=== PATIENT | female | born 1985 | race Caucasian/White ===

== ENCOUNTER 2016-08-20 11:55 | Emergency (ER) | payer BC ==
[~2016-08-20] VITALS: Ht 162.6 cm; Wt 122.0 kg
[~2016-08-20 11:55] MED LIST: IRON1TAB78 PO; PREN1TAB62 PO
[2016-08-20 12:00] VITALS: Ht 162.6 cm; Wt 122.0 kg
[2016-08-20] MEDS ORDERED: ALBUTEROL 0.083% (NEB) 2.5 MG/3 ML AMP HHN STA (13:08)
--- NOTE | 2016-08-20 13:40 | RADRPT ---
PROCEDURE: XR Chest. CLINICAL INDICATION: chest pain, cough TECHNIQUE: Single frontal view of the chest was obtained COMPARISON: 01/30/2008 FINDINGS: The heart and mediastinum are within normal limits. The lungs are clear. There is no pleural effusion or pneumothorax. RPTAT: AA IMPRESSION: No acute disease. .Jose L Darling MD, MD Date Time Electronically viewed and signed by .Jose L Darling MD, on 08/20/2016 13:40 .S/
[2016-08-20] MEDS ORDERED: NAPR-260 PO (15:18)
[2016-08-20] MEDS ORDERED: ALBU8.5H3 INH (15:18)
--- NOTE | 2016-08-20 17:34 | ERD ---
ER Documentation Chief Complaint Date/Time DATE: 08/20/16 TIME: 17:30 Chief Complaint chest pain x 2 days HPI Patient is a 31-year-old female with no past medical history who presents to the ED with chest pain, chest pressure and shortness of breath with a dry cough for the last 3 days. She states that she has had shortness of breath and a dry cough and feels that she has wheezing. She states that the pain is located in her upper chest. Denies radiation of pain. Denies numbness or tingling. Denies fever, chills or night sweats. She states that she has had these symptoms in the past but has not taken any medication for her symptoms. She denies recent surgeries, recent travel. She denies leg pain or leg swelling. She states that the pain in her chest is on and off. She denies syncopal episodes. She denies headache or dizziness, neck pain or neck stiffness. She denies any early MIs in her family history. ROS All systems reviewed and are negative except as per history of present illness. Medications Home Meds Active Scripts Naproxen* (Naprosyn*) 500 Mg Tablet, 500 MG PO BID Y for PAIN AND/OR INFLAMMATION, #30 TAB Prov:IVAN ORTA PA-C 08/20/16 Albuterol Sulfate* (Proair HFA*) 8.5 Gm Hfa.aer.ad, 2 PUFF INH Q4, #1 INHALER Prov:IVAN ORTA PA-C 08/20/16 Reported Medications Iron,Carbonyl/Vit C/Vit B12/Fa (IRON 100 PLUS TABLET) 1 Each Tablet, 1 EACH PO, TAB 10/09/15 Vit-Iron Fumarate-FA ( Vitamin Tablet) 1 Each Tablet, 1 TAB PO DAILY, TAB 10/09/15 Allergies Allergies: Coded Allergies: Penicillins (Verified Allergy, Mild, RASH, VOMITING, ITCHING, 09/27/15) PMhx/Soc Medical and Surgical Hx: pt denies Medical Hx History of Surgery: Yes (gallbladder 5 years ago) Anesthesia Reaction: No Hx Neurological Disorder: No Hx Respiratory Disorders: No Hx Cardiac Disorders: No Hx Psychiatric Problems: No Hx Miscellaneous Medical Probl: No Hx Alcohol Use: Yes (occassional) Hx Substance Use: No Hx Tobacco Use: Yes Smoking Status: Current some day smoker FmHx Family History: No coronary disease, No diabetes, No other Physical Exam Vitals Vital Signs Date Time Temp Pulse Resp B/P Pulse Ox O2 Delivery O2 Flow Rate FiO2 08/20/16 14:27 77 22 99 21 08/20/16 12:00 97.7 95 18 98 Physical Exam GENERAL: Well-developed, well-nourished female. Appears in no acute distress. HEAD: Normocephalic, atraumatic. EYES: Pupils are equally reactive bilaterally. EOMs grossly intact. No conjunctival erythema. ENT: Moist mucous membranes. No uvula deviation. No kissing tonsils. No exudates. NECK: Supple. No lymphadenopathy or thyromegaly. No meningismus. negative kernig. negative brudinski. LUNG: Clear to auscultation bilaterally. No rhonchi, rales or coarse breath sounds. Bilateral expiratory wheezes. HEART: Regular rate and rhythm. No murmurs, rubs or gallops. Extremities: Equal pulses bilaterally. No peripheral clubbing, cyanosis or edema. No unilateral leg swelling. No erythema in her legs. Negative Homans sign. NEUROLOGIC: Alert and oriented. Moving all four extremities. 5/5 strength in all extremities. Normal speech. Steady gait. SKIN: Normal color. Warm and dry. No rashes or lesions. Capillary refill < 2 seconds Results 24 hrs Current Medications Medications (Trade) Dose Ordered Sig/Franco Route PRN Reason Start Time Stop Time Status Last Admin Dose Admin Albuterol (Proventil 0.083% (Neb)) 2.5 mg ONCE STAT HHN 08/20/16 13:08 08/20/16 13:12 DC 08/20/16 14:27 Procedures/MDM ER COURSE: I kept the patient and/or family informed of laboratory and diagnostic imaging results throughout the emergency room course. MEDICATIONS RT consult. Albuterol. Tolerated well with no adverse reaction per [facility] [place] [id number] Radiology Main Line: [phone] DIAGNOSTIC IMAGING REPORT Patient: MARY ZAVALETA : 1985 Age: 31 Sex: F MR #: [id number] DOS: 08/20/16 1308 Ordering MD: IVAN ORTA PAEzio Location: [facility] Room/Bed: PROCEDURE: XR Chest. CLINICAL INDICATION: chest pain, cough TECHNIQUE: Single frontal view of the chest was obtained COMPARISON: 01/30/2008 FINDINGS: The heart and mediastinum are within normal limits. The lungs are clear. There is no pleural effusion or pneumothorax. RPTAT: AA IMPRESSION: No acute disease. .Jose L Darling MD, Date Time Electronically viewed and signed by .Jose L Darling MD, MD on 08/20/2016 13: 40 .S/ CC: IVAN ORTA PA-C EKG performed, read by Dr. Vergara 89bpm, normal sinus rhythm, normal axis, no acute ST segment changes, no T wave inversion MEDICAL DECISION MAKING: This is a 31-year-old who presents with cough, wheezing, shortness of breath and chest pain 3 days. Vital signs were reviewed. Patient is afebrile. Patient is not hypoxic. Patient is not toxic or ill-appearing. Her oxygen is within normal limits 98 with a pulse of 95. Her x-rays read by radiologist unremarkable. I consulted Dr. Zimmerman regarding this patient who reviewed her imaging studies and laboratory studies and agrees that patient can be treated outpatient only. I reexamined patient after RT consult and albuterol and she stated improvement in her symptoms. Patient likely has a URI of viral etiology with wheezing. Low suspicion for pneumonia, PE, pneumothorax, ACS, epiglottitis , obstruction, TB, pertussis, meningitis, sepsis. Low suspicion for ACS, PE, AAA, dissection, DVT I have low suspicion for PE. PERC Criteria Assessment: Age > 50: No HR > 100: No 02 < 95%: No H/o DVT/PE: No Recent trauma/surgery: No Hemoptysis: No Exogenous Estrogen: No Unilateral Leg swelling: No Pretest probability > 15%: No [Less than 2% risk of PE. No further work up is necessary] DISCHARGE: At this time, patient is stable for discharge and outpatient management with no new complaints during the ER course. Patient was sent home with Naprosyn, albuterol and a copy of all imaging reports.. Patient will be discharged home with instructions to recheck for new or worsening symptoms such as fever, nausea , weakness, LOC and to follow up with primary care in the next 1-2 days. Patient was advised to return to the ER for any new or worsening symptoms. Plan was discussed and patient and/or family understands and agrees. Home instructions were given. Departure Diagnosis: Primary Impression: Cough Condition: Stable Patient Instructions: Cough, Chronic, Uncertain Cause, (Adult) Additional Instructions: Call your primary care doctor TOMORROW for an appointment during the next 1-2 days.See the doctor sooner or return here if your condition worsens before your appointment time. IVAN ORTA PA-C August 20, 2016 17:34
== END 2016-08-20 15:28 | disposition home or self-care (01) ==
LOC: FTE 11:55
DX: R05 Cough (principal); F17.210 Nicotine dependence, cigarettes, uncomplicated
CPT/HCPCS: 71010; 93005; 94664; Z7502; Z7610